=== PATIENT | female | born 1990 | race African-American/Black ===

== ENCOUNTER 2024-10-10 15:38 | Emergency (ER) | payer BC ==
[~2024-10-10] VITALS: Ht 167.6 cm; Wt 65.0 kg
[2024-10-10 15:58] VITALS: O2SAT 99
[2024-10-10 16:28] LABS: CLARITY URINE CLEAR (CLEAR); COLOR URINE YELLOW (YELLOW); GLUCOSE URINE NEGATIVE (NEGATIVE); KETONES URINE NEGATIVE (NEGATIVE); LEUKOCYTE ESTERASE URINE NEGATIVE (NEGATIVE); NITRITE URINE NEGATIVE (NEGATIVE); OCCULT BLOOD URINE NEGATIVE (NEGATIVE); PROTEIN URINE NEGATIVE (NEGATIVE)
[2024-10-10 22:12] VITALS: BP 125/67; PULSE 67; RESP 18; TEMP 36.6; O2SAT 100
[2024-10-12 04:07] LABS: HSV TYPE 2 SPECIFIC AB IGG Non Reactive (Non Reactive)
== END 2024-10-10 22:05 | disposition home or self-care (01) ==
LOC: ER 15:38
DX: R10.2 Pelvic and perineal pain (principal)
CPT/HCPCS: 36415; 76830; 76856; 81003; 84702; 86695; 86696; 87529; 99284